=== PATIENT | female | born 1990 | race African-American/Black ===

== ENCOUNTER 2021-01-04 21:20 | Emergency (ER) | payer SELFPAY ==
[2021-01-04] MEDS ORDERED: ACETAMINOPHEN 500 MG TAB ONE (22:46)
--- NOTE | 2021-01-04 23:17 | ER ---
Nurse's Notes [facility] Name: Ant Fierro Age: 30 yrs Sex: Female : 1990 Arrival Date: 01/04/2021 Time: 21:51 Bed 9 Private MD: Diagnosis: Contusion of unspecified part of head Presentation: 01/04 21:57 Chief complaint: Patient states: Pt states this morning while at work she was bumped in wg the head with the handle of a shovel. Pt states she was hit on the right temporal area. Pt denies falling to ground, denies LOC, SOB, N/V/D. Pt states she initially felt a little dizzy but that has subsided. Pt continued to work throughout day, went home, showered and decided she wanted to get checked out to make sure she's okay. No raised or reddened area or any sign of trauma. Coronavirus screen: Vaccine status: Patient reports being unvaccinated. At this time, the client does not indicate any symptoms associated with coronavirus-19. Ebola Screen: Patient negative for fever greater than or equal to 101.5 degrees Fahrenheit, and additional compatible Ebola Virus Disease symptoms Patient denies exposure to infectious person. Patient denies travel to an Ebola-affected area in the 21 days before illness onset. Mechanism of Injury: The problem was sustained at work, resulted from accidental injury from handle from shovel. Initial Sepsis Screen: Does the patient meet any 2 criteria? No. Patient's initial sepsis screen is negative. Does the patient have a suspected source of infection? No. Patient's initial sepsis screen is negative. Risk Assessment: Do you want to hurt yourself or someone else? Patient reports no desire to harm self or others. 21:57 Method Of Arrival: Ambulatory 21:57 Acuity: NANDO 4 Triage Assessment: 22:02 General: Appears in no apparent distress. comfortable, slender, well groomed, Behavior wg is calm, cooperative, appropriate for age. Pain: Complains of pain in right temporal area. EENT: No deficits noted. Neuro: No deficits noted. 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 Gait is steady, Speech is normal, Facial symmetry appears normal, Pupils are PERRLA, Intact states pain when palpated, otherwise feels fine. . Reports Denies blurred vision dizziness, headache photophobia. Cardiovascular: No deficits noted. Respiratory: No deficits noted. GI: No deficits noted. : No deficits noted. Derm: No deficits noted. Musculoskeletal: No deficits noted. 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 - Social history:: Smoking status: Patient denies any tobacco usage or history of. Patient uses alcohol, but reports only rare drinking. Patient/guardian denies using street drugs, IV drugs. Assessment: 23:01 General: Appears in no apparent distress. comfortable. Pain: Complains of pain in face ch4 Pain at worst was 5 out of 10 on a pain scale. Quality of pain is described as tender. Neuro: No deficits noted. Cardiovascular: No deficits noted. Respiratory: No deficits noted. GI: No deficits noted. : No deficits noted. EENT: No deficits noted. Derm: No deficits noted. Musculoskeletal: No deficits noted. 23:26 Reassessment: Patient is alert, oriented x 3, equal unlabored respirations, skin ch4 warm/dry/pink. Patient states feeling better. Vital Signs: 21:57 BP 109 / 71; Pulse 60; Resp 18; Temp 98.7; Pulse Ox 100% on R/A; Weight 63.5 kg; Height 5 ft. 7 in. (170.18 cm); Pain 4/10; 23:26 BP 112 / 72; Pulse 65; Resp 17; Temp 98.6; Pulse Ox 100% ; ch4 21:57 Body Mass Index 21.93 (63.50 kg, 170.18 cm) [place] Coma Score: 21:57 Eye Response: spontaneous(4). Verbal Response: oriented(5). Motor Response: obeys wg commands(6). Total: 15. 22:30 Eye Response: spontaneous(4). Verbal Response: oriented(5). Motor Response: obeys commands(6). Total: 15. 23:27 Eye Response: spontaneous(4). Verbal Response: oriented(5). Motor Response: obeys ch4 commands(6). Total: 15. ED Course: 21:51 Patient arrived in ED. wm 22:02 Triage completed. wg 22:02 Arm band placed on right wrist. wg 22:11 Jeff Gregory PA is PHCP. cp 22:11 Jeff Roca MD is Attending Physician. cp 22:13 Aaliyah Robles, RN is Primary Nurse. ch4 22:42 CT Head Brain wo Cont: hit by handle of shovel In Process Unspecified. EDMS Administered Medications: 22:22 Drug: Tylenol 1000 mg Route: PO; ch4 Outcome: 23:16 Discharge ordered by MD. cp 23:27 Patient left the ED. ch4 Signatures: Dispatcher [employer] EDMS Jeff Gregory PA PA cp Marsh, Wendy Aaliyah Robles, NEVILLE RN [facility] Pee Nur RN wg Corrections: (The following items were deleted from the chart) 22:06 21:57 Chief complaint: Patient states: Pt states this morning while at work she was wg bumped in the head with the handle of a shovel. Pt states she was hit on the right temporal area. Pt denies falling to ground, denies LOC, SOB, N/V/D. Pt states she initially felt a little dizzy but that has subsided. Pt continued to work throughout day, went home, showered and decided she wanted to get checked out to make sure she's okay. wg
--- NOTE | 2021-01-04 23:17 | EDPHYS ---
Physician Documentation [facility] Name: Ant Fierro Age: 30 yrs Sex: Female : 1990 Arrival Date: 01/04/2021 Time: 21:51 Bed 9 Private MD: BEA Physician Jeff Roca HPI: 01/04 22:30 This 30 yrs old Black Female presents to ER via Ambulatory with complaints of Closed cp Head Injury-Adult. 22:30 The patient or guardian reports injury, pain. The complaints affect the right protestant. cp Context of injury: The problem was sustained at work, resulted from a direct blow, handle of shovel. 22:30 Onset: The symptoms/episode began/occurred this morning. Associated signs and symptoms: cp Loss of consciousness: This patient did not experience any loss of consciousness. Pertinent positives: headache, Pertinent negatives: neck pain, seizure, vomiting. 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 - Social history:: Smoking status: Patient denies any tobacco usage or history of. Patient uses alcohol, but reports only rare drinking. Patient/guardian denies using street drugs, IV drugs. ROS: 22:35 Neuro: Positive for headache, Negative for dizziness, loss of consciousness, weakness. cp 22:35 Eyes: Negative for injury, pain, redness, and discharge. cp 22:35 Constitutional: Negative for body aches, chills, fever. 22:35 ENT: Negative for ear pain, sore throat, difficulty swallowing, difficulty handling secretions. 22:35 Neck: Negative for pain with movement, pain at rest, stiffness. 22:35 Abdomen/GI: Negative for abdominal pain, nausea, vomiting, and diarrhea. 22:35 All other systems are negative. Exam: 22:40 Constitutional: The patient appears in no acute distress, alert, awake, non-toxic, well cp developed, well nourished. 22:40 Head/face: Noted is swelling, that is mild, of the right protestant, tenderness, that is cp mild, of the right protestant, Sinus tenderness, is not appreciated. 22:40 Eyes: Periorbital structures: appear normal, Pupils: equal, round, and reactive to light and accomodation, Extraocular movements: intact throughout, Conjunctiva: normal, no exudate, no injection, Sclera: no appreciated abnormality, Lids and lashes: appear normal, bilaterally. 22:40 ENT: External ear(s): are unremarkable, Ear canal(s): are normal, clear, TM's: dullness, bilaterally, Nose: is normal, Mouth: Lips: moist, Oral mucosa: moist, Posterior pharynx: Airway: no evidence of obstruction, patent. 22:40 Neck: C-spine: vertebral tenderness, is not appreciated, crepitus, is not appreciated, ROM/movement: is normal, is supple, without pain, no range of motions limitations. 22:40 Chest/axilla: Inspection: normal. 22:40 Cardiovascular: Rate: normal. 22:40 Respiratory: the patient does not display signs of respiratory distress, Respirations: normal, no use of accessory muscles, no retractions, labored breathing, is not present. 22:40 Abdomen/GI: Exam negative for discomfort, distension, guarding, Inspection: abdomen appears normal. 22:40 Back: pain, is absent, ROM is normal. 22:40 Neuro: Orientation: to person, place \T\ time. Mentation: is normal, Cerebellar function: is grossly normal, Motor: moves all fours, strength is normal, Sensation: is normal, Gait: is steady, at a normal pace, without difficulty. Vital Signs: 21:57 BP 109 / 71; Pulse 60; Resp 18; Temp 98.7; Pulse Ox 100% on R/A; Weight 63.5 kg; Height wg 5 ft. 7 in. (170.18 cm); Pain 4/10; 23:26 BP 112 / 72; Pulse 65; Resp 17; Temp 98.6; Pulse Ox 100% ; ch4 21:57 Body Mass Index 21.93 (63.50 kg, 170.18 cm) [place] Coma Score: 21:57 Eye Response: spontaneous(4). Verbal Response: oriented(5). Motor Response: obeys wg commands(6). Total: 15. 22:30 Eye Response: spontaneous(4). Verbal Response: oriented(5). Motor Response: obeys commands(6). Total: 15. 23:27 Eye Response: spontaneous(4). Verbal Response: oriented(5). Motor Response: obeys ch4 commands(6). Total: 15. MDM: 22:11 Patient medically screened. [facility] 22:30 Differential diagnosis: Contusion of Hematoma on Laceration of Intracranial bleed- cp Concussion cerebral contusion. 23:15 Data reviewed: vital signs, nurses notes, radiologic studies, CT scan. cp 23:15 Counseling: I had a detailed discussion with the patient and/or guardian regarding: the cp historical points, exam findings, and any diagnostic results supporting the discharge/admit diagnosis, radiology results. Special discussion: Based on the patient's history, exam and DX evaluation, there is no indication for emergent intervention or inpatient TX. It is understood by the patient/guardian that if the SXs persist or worsen they need to return immediately for re-evaluation. ED course: VSS. CT results negative for acute trauma. Will discharge to home for continued monitoring. Recommend OTC ibuprofen and/or tylenol for pain. 01/04 22:20 Order name: CT Head Brain wo Cont: hit by handle of shovel cp Administered Medications: 22:22 Drug: Tylenol 1000 mg Route: PO; ch4 Disposition: 23:30 Chart complete. cp Disposition Summary: 01/04/21 23:16 Discharge Ordered Location: Home cp Problem: new cp Symptoms: have improved cp Condition: Stable cp Diagnosis - Contusion of unspecified part of head cp Followup: cp - With: Private Physician - When: 2 - 3 days - Reason: Worsening of condition Discharge Instructions: - Discharge Summary Sheet cp - Head Injury, Adult cp Forms: - Medication Reconciliation Form cp - Thank You Letter cp - Antibiotic Education cp - Prescription Opioid Use cp - Work release form ch4 Addendum: 01/06/2021 05:17 Co-signature as Attending Physician, Jeff Roca MD I agree with the assessment and c soni plan of care. Signatures: Dispatcher [employer] Jeff Mayo MD MD cha Page, Corey, PA PA cp Aaliyah Robles, RN RN ch4 Pee Nur RN wg
[2021-01-04 23:47] VITALS: O2SAT 100
[2021-01-04 23:48] VITALS: BP 112/72; TEMP 98.6
--- NOTE | 2021-01-05 11:52 | RAD REPORT ---
EXAM DESCRIPTION: CT - Head Brain Wo Cont - 01/05/2021 6:36 am COMPARISON: None. CLINICAL HISTORY: HEADACHE TECHNIQUE: Axial images were obtained from skull base to vertex without intravenous contrast. Imag es viewed on bone and brain windows. Multiplanar reformats were performed. Automated exposure contr ol was utilized on this examination as a dose lowering technique. FINDINGS: Brain parenchyma, ventricles, dura, meninges, and extra-axial spaces: Ventricles and sulci are normal. No abnormal attenuation of brain parenchyma is present. No acute intracranial hemor rhage or abnormal extra-axial fluid collections are present. Vascular structures: No hyperdense arteries or veins. Calvarium, mastoid air cells, paranasal sinuses and orbits: The calvarium is normal. The mastoid air cells are clear. Visualized paranasal sinuses are unremarkable. Orbital structures are unremarkable. HEAD IMPRESSION: No acute intracranial abnormality. Electronically signed by: Calixto Padilla MD 01/04/2021 11:12 PM CDT Due to temporary technical issues with the PACS/Fluency reporting system, reports are being signed by the in house radiologist without review as a courtesy to ensure prompt reporting. The interpreting r adiologist is fully responsible for the content of the report.
== END 2021-01-04 23:27 | disposition home or self-care (01) ==
LOC: ER 21:20
DX: S00.83XA Contusion of other part of head, initial encounter (principal); W22.8XXA Striking against or struck by other objects, initial encounter; Y92.89 Other specified places as the place of occurrence of the external cause; Y99.8 Other external cause status
CPT/HCPCS: 70450; 99283

== ENCOUNTER 2023-03-22 17:39 | Inpatient (IN) | payer MEDICAID, SELFPAY ==
--- OUTSIDE RECORDS SUMMARY | 2023-03-22 17:43 | XMS REPORT | Continuity of Care Document ---
:1990 Author Organization [facility] t Address [address] [place] [address] Care Team Providers Name Role Phone Roxane Naidu Primary Care Physician [phone] ROXANE BERNARD Attending Clinician Unavailable Roxane Naidu Attending Clinician [phone] Doctor Unassigned, Jeannette Attending Clinician Unavailable Only, Ang Db Test Attending Clinician Unavailable Graciela Chilel Attending Clinician GRACIELA MAKI Attending Clinician Unavailable Kerri Small Attending Clinician KERRI TRAN Attending Clinician Unavailable Payers Payer Name Policy Type Policy Number Effective Date Expiration Date Kush sebastian [employer] [id number] 2017 00:00:00 Problems Condition Condition Condition Status Onset Resolution Last Treating Co mments Source Name Details Category Date Date Treatment Clinician Date Well woman Well woman Disease Active U nivers exam exam 3-07 ity of 00:00: [place] 00 Medical Branch Vaginal Vaginal Disease Active Univers discharge discharge 3-04 ity of 00:00: [place] 00 Medical Branch Other Other Disease Active Univers general general 3-04 [place] and advice 00 Me dical for for Branch contracept contracept estelita estelita management management Screening Screening Disease Active Uni vers examinatio examinatio 7-15 it y of n for n for 00:00: [place] venereal venereal 00 Medica l disease disease Branch Prophylact Prophylact Disease Active U nivers ic ic 7-15 [place] BV BV Disease Active 2017-04 Univers (bacterial (bacterial 2-05 it y of vaginosis[place] vaginosis[place] Screening Screening Disease Active Uni vers for for 906 ity of venereal venereal 00:00: [place] disease disease 00 Medical Branch Vaginal Vaginal Disease Active Univers irritation irritation 12-26 it y of 00:00: [place] 00 Medical Branch R/O R/O Disease Active 2015-04 Univers Vaginal Vaginal 0-19 ity of yeast yeast 00:00: [place] infection infection 00 [facility] Branch Hemorrhage Hemorrhage Disease Active Overview : Univers of of 8 Formattin ity of gastrointe gastrointe 00:00: g of this [place] stinal stinal 00 note Medical tract tract might be Branch different from the original. 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 Anemia Anemia Disease Active Overview: Univer s 12-11 Blood ity of 00:00: loss [address] Branch Allergies, Adverse Reactions, Alerts Allergy Allergy Status Severity Reaction(s) Onset Inactive Treating Comm ents Source Name Type Date Date Clinician NO KNOWN Drug Active Univers ALLERGIE Class ity of S [facility] Social History Social Habit Start Date Stop Date Quantity Comments Source Sexual orientation Univer sity of [facility] Exposure to 2022-06-16 2022-06-26 Not sure [facility] SARS-CoV-2 (event) 00:00:00 07:57:00 [facility] History of Social 2022-06-26 2022-06-26 Univers ity of function 00:00:00 00:00:00 [facility] Alcohol intake 2020-06-23 2020-06-23 Current drinker Unive rsity of 00:00:00 00:00:[address] [facility] (finding) [place] Alcohol Comment 2020-03-22 2020-03-22 social Universit y of 00:00:00 00:00:00 [facility] Tobacco use and 2012-12-10 2012-12-10 Smokeless Universit y of exposure 00:00:00 00:00:00 tobacco non-user [facility] Sex Ass[birth year] Universit y of 00:00:00 00:00:00 [facility] Smoking Status Start Date Stop Date Source Never smoked tobacco [facility] Medications Ordered Filled Start Stop Current Ordering Indication Dosage Frequency Signature Comments Components Source Medication Medication Date Date Medication? Clinician (SIG) Name Name fluconazole 2019-04- No [id number] 150mg Take 1 Univers (DIFLUCAN) 05-23 tablet by ity of 150 mg 00:00[place] 05:59 [place] tablet [place] :[place] now for 1 Medical dose. Branch fluconazole 2019-04- No [id number] 150mg Take 1 Univers (DIFLUCAN) 05-23 tablet by ity of 150 mg 00:00: 05:59 [place] tablet 00 :00 now for 1 Medical dose. Branch fluconazole 2019-04- No [id number] 150mg Take 1 Univers (DIFLUCAN) 05-23 tablet by ity of 150 mg 00:00: 05:59 [place] tablet 00 :00 now for 1 Medical dose. Branch fluconazole 2019-04- No [id number] 150mg Take 1 Univers (DIFLUCAN) 05-23 tablet by ity of 150 mg 00:00: 05:59 [place] tablet 00 :00 now for 1 Medical dose. Branch fluconazole 2019-04- No [id number] 150mg Take 1 Univers (DIFLUCAN) 05-23 tablet by ity of 150 mg 00:00: 05:59 [place] tablet 00 :00 now for 1 Medical dose. Branch metroNIDAZO 2018-04 Yes [id number] 500mg Take 1 Univers LE 500 mg 0-25 tablet by ity o f tablet 00:00: mouth 2 [place] (two) Medical times [place] daily. metroNIDAZO 2018-04 Yes [id number] 500mg Take 1 Univers LE 500 mg 0-25 tablet by ity o f tablet 00:00: mouth 2 [place] 00 (two) Medical times [place] daily. metroNIDAZO 2018-04 Yes [id number] 500mg Take 1 Univers LE 500 mg 0-25 tablet by ity o f tablet 00:00: mouth 2 [place] 00 (two) Medical times Branch daily. metroNIDAZO 2018-04 Yes [id number] 500mg Take 1 Univers LE 500 mg 0-25 tablet by ity o f tablet 00:00: mouth 2 [place] 00 (two) Medical times Branch daily. metroNIDAZO 2018-04 Yes [id number] 500mg Take 1 Univers LE 500 mg 0-25 tablet by ity o f tablet 00:00: mouth 2 [place] 00 (two) Medical times Branch daily. metroNIDAZO 2018-04 2020- No [id number] 500mg Take 1 Univers LE 500 mg 0-25 12-01 tablet by ity of tablet 00:00: 00:00 mouth 2 [place] 00 :00 (two) Medical times Branch daily. metroNIDAZO 2018-04 2020- No [id number] 500mg Take 1 Univers LE 500 mg 0-25 12-01 tablet by ity of tablet 00:00: 00:00 mouth 2 [place] 00 :00 (two) Medical times Branch daily. metroNIDAZO 2018-04 2020- No [id number] 500mg Take 1 Univers LE 500 mg 0-25 12-01 tablet by ity of tablet 00:00: 00:00 mouth 2 [place] 00 :00 (two) Medical times Branch daily. metroNIDAZO 2018-04 2020- No [id number] 500mg Take 1 Univers LE 500 mg 0-25 12-01 tablet by ity of tablet 00:00: 00:00 mouth 2 [place] 00 :00 (two) Medical times Branch daily. metroNIDAZO 2018-04 2020- No [id number] 500mg Take 1 Univers LE 500 mg 0-25 12-01 tablet by ity of tablet 00:00: 00:00 mouth 2 [place] 00 :00 (two) Medical times Branch daily. metroNIDAZO 2017-04 Yes [id number] 1{appli Insert 1 Univers LE 2-20 cator} Applicator ity of (METROGEL 00:00: into [place] VAGINAL) 00 vagina at Medica l 0.75 % bedtime. Branch vaginal gel metroNIDAZO 2017-04 Yes [id number] 1{appli Insert 1 Univers LE 2-20 cator} Applicator ity of (METROGEL 00:00: into [place] VAGINAL) 00 vagina at Medica l 0.75 % bedtime. Branch vaginal gel metroNIDAZO 2017-04 Yes [id number] 1{appli Insert 1 Univers LE 2-20 cator} Applicator ity of (METROGEL 00:00: into [place] VAGINAL) 00 vagina at Medica l 0.75 % bedtime. Branch vaginal gel metroNIDAZO 2017-04 Yes [id number] 1{appli Insert 1 Univers LE 2-20 cator} Applicator ity of (METROGEL 00:00: into [place] VAGINAL) 00 vagina at Medica l 0.75 % bedtime. Branch vaginal gel metroNIDAZO 2017-04 Yes [id number] 1{appli Insert 1 Univers LE 2-20 cator} Applicator ity of (METROGEL 00:00: into [place] VAGINAL) 00 vagina at Medica l 0.75 % bedtime. Branch vaginal gel metroNIDAZO 2017-04- No [id number] 1{appli Insert 1 Univers LE 203-22 cator} Applicator ity of (METROGEL 00:00: 00:00 into [place] VAGINAL) 00 :00 vagina at Medica l 0.75 % bedtime. Branch vaginal gel metroNIDAZO 2017-04- No [id number] 1{appli Insert 1 Univers LE 203-22 cator} Applicator ity of (METROGEL 00:00: 00:00 into [place] VAGINAL) 00 :00 vagina at Medica l 0.75 % bedtime. Branch vaginal gel metroNIDAZO 2017-04- No [id number] 1{appli Insert 1 Univers LE 203-22 cator} Applicator ity of (METROGEL 00:00: 00:00 into [place] VAGINAL) 00 :00 vagina at Medica l 0.75 % bedtime. Branch vaginal gel metroNIDAZO 2017-04- No [id number] 1{appli Insert 1 Univers LE 203-22 cator} Applicator ity of (METROGEL 00:00: 00:00 into [place] VAGINAL) 00 :00 vagina at Medica l 0.75 % bedtime. Branch vaginal gel metroNIDAZO 2017-04- No [id number] 1{appli Insert 1 Univers LE 203-22 cator} Applicator ity of (METROGEL 00:00: 00:00 into [place] VAGINAL) 00 :00 vagina at Medica l 0.75 % bedtime. Branch vaginal gel No known No Univers medications ity of [facility] No known No [facility] No known No [facility] [place] [facility] Immunizations Ordered Filled Date Status Comments Source Immunization Name Immunization Name TD 2010-04-22 Completed University of 00:00:00 [facility] TDAP 2010-04-22 Completed University of 00:00:00 [facility] TDAP 2010-04-22 Completed University of 00:00:00 [facility] TDAP 2010-04-22 Completed University of 00:00:00 [facility] TDAP 2010-04-22 Completed University of 00:00:00 [facility] Branch TDAP 2010-04-22 Completed University of 00:00:00 [facility] Branch Tdap 2010-04-22 Completed University of 00:00:00 [facility] Tdap 2010-04-22 Completed University of 00:00:00 [facility] Tdap 2010-04-22 Completed University of 00:00:00 [facility] Tdap 2010-04-22 Completed University of 00:00:00 [facility] TDAP 2010-04-22 Completed University of 00:00:00 [facility] TDAP 2010-04-22 Completed University of 00:00:00 [facility] TDAP 2010-04-22 Completed University of 00:00:00 [facility] TDAP 2010-04-22 Completed University of 00:00:00 [facility] TDAP 2010-04-22 Completed University of 00:00:00 [facility] TDAP 2010-04-22 Completed University of 00:00:00 [facility] TDAP Unknown Completed [facility] Vital Signs Vital Name Observation Time Observation Value Comments Source Systolic blood 2022-06-26 13:56:00 105 mm[Hg] Univer sity of pressure [facility] Diastolic blood 2022-06-26 13:56:00 61 mm[Hg] Unive rsity of pressure [facility] Heart rate 2022-06-26 13:56:00 63 /min [facility] Body temperature 2022-06-26 13:56:00 36.78 Lashae [facility] 2022-06-26 13:56:00 20 /min [facility] Body height 2022-06-26 13:56:00 165.1 cm [facility] Body weight 2022-06-26 13:56:00 67.903 kg Universi ty of [facility] BMI 2022-06-26 13:56:00 24.91 kg/m2 Universi ty of [facility] Systolic blood 2020-06-23 21:43:00 113 mm[Hg] Univer sity of pressure [facility] Diastolic blood 2020-06-23 21:43:00 75 mm[Hg] Unive rsity of pressure [facility] Heart rate 2020-06-23 21:43:00 69 /min Universi ty of [facility] Body temperature 2020-06-23 21:43:00 36.72 Lashae Univ ersity of [facility] Respiratory rate 2020-06-23 21:43:00 16 /min Univ ersity of [facility] Body height 2020-06-23 21:43:00 165.1 cm Universi ty of [facility] Body weight 2020-06-23 21:43:00 65.772 kg Universi ty of [facility] BMI 2020-06-23 21:43:00 24.13 kg/m2 Universi ty of [facility] Systolic blood 2020-03-22 16:01:00 108 mm[Hg] Univer sity of pressure [facility] Branch Diastolic blood 2020-03-22 16:01:00 82 mm[Hg] Unive rsity of pressure [facility] Heart rate 2020-03-22 16:01:00 69 /min Universi ty of [facility] Body temperature 2020-03-22 16:01:00 36.72 Lashae Univ ersity of [facility] Respiratory rate 2020-03-22 16:01:00 16 /min Univ ersity of [facility] Body height 2020-03-22 16:01:00 165.1 cm Universi ty of [facility] Body weight 2020-03-22 16:01:00 64.949 kg Universi ty of [facility] BMI 2020-03-22 16:01:00 23.83 kg/m2 Universi ty of [facility] Procedures Procedure Date / Time Performing Clinician Source Performed GC & CHLAMYDIA 2022-06-26 14:52:00 Roxane Bernard [facility] HIV 1/2 AG-AB WITH 2022-06-26 14:52:00 Roxane Bernard [facility] TRICHOMONAS AMPLIFIED 2022-06-26 14:52:00 Roxane Bernard [facility] ASSAY [facility] SYPHILIS IGG/IGM 2022-06-26 14:52:00 [facility] 2022-06-26 13:50:20 Doctor Unassigned, No [facility] ASSIGNMENT OF BENEFITS 2020-03-22 15:48:11 Doctor Unassigned, No [facility] Encounters Start End Encounter Admission Attending Care Care Encounter Source Date/Time Date/Time Type Type Clinicians Facility Department ID 2022-06-26 2022-06-26 Outpatient R BLAS [facility] [id number] Univers 07:45:00 08:52:31 ROXANE grimes f [facility] 2022-06-26 2022-06-26 Office Blas [facility] [id number] Univers 07:45:00 08:52:31 Visit Roxane Anguiano WAFER FAB TECHNICIAN [id number] ity of [facility] [id number] [place] as MATERNAL [phone] Med ical & CHILD 107 [facility] 2022-06-26 2022-06-26 Orders Doctor PRAVEEN [id number] Univers 00:00:00 00:00:00 Only Unassigned, MENDOZA [id number] ity of [place] [facility] [id number] Xiang as [phone] [facility] 009 Branch 2020-12-23 2020-12-23 Patient Doctor [facility] [id number] Univers 00:00:00 00:00:00 Secure Msg Unassigned, MULTISPEC [id number] ity of [place] [id number] [place] [phone] [facility] AND [place] 189 Branch [facility]ES [facility] 2020-12-21 2020-12-21 Laboratory Only, Ang Db Test [facility] [id number] Univers 12:10:16 12:20:16 [facility] [id number] ity [facility] [id number] Xiang as Ang?Blea [phone] Ar natalya bird [address] [place] [address] Medical Office Building 2020-12-21 2020-12-21 Outpatient R GLYNN [facility] [id number] Univers 11:30:00 11:30:00 GRACIELA pretty o [facility] 2020-06-23 2020-06-[address] [facility] [id number] Univers 15:34:30 16:16:23 Visit Roxane Anguiano WAFER FAB TECHNICIAN [id number] ity of [place] [id number] Xiang as MATERNAL [phone] [facility] ica & [address] 2020-06-23 2020-06-23 Outpatient R [facility] [id number] Univers 15:45:00 15:45:00 ROXANE grimes [facility] 2020-03-22 2020-03-22 Office [facility] [id number] Univers 09:49:26 10:43:22 Visit Kerri Sparrow WAFER FAB TECHNICIAN [id number] it y of [facility] [id number] [place]iang as MATERNAL [id number] [address] 2020-03-22 2020-03-22 [facility] [id number] Univers 09:45:00 09:45:00 KERRI pretty [facility] 2020-03-22 2020-03-22 Orders Doctor [place] [id number] Univers 00:00:00 00:00:00 Only Unassigned, MENDOZA [id number] ity of [place] [facility] 4.2.7.2.686 Xiang as [phone] [address] 2019-09-10 2019-09-10 Telephone [facility] [id number] Univers 00:00:00 00:00:00 Roxane Anguiano WAFER FAB TECHNICIAN [id number] ity of [facility] [id number] Xiang as MATERNAL [phone] [facility] ical & CHILD 107 [facility] 2019-09-08 2019-09-08 Telephone Rameshnatali [facility] [id number] Univers 00:00:00 00:00:00 Roxane C WAFER FAB TECHNICIAN [id number] ity of REGIONAL [id number] Xiang as MATERNAL [id number] [facility] [address] [place] [address] 2019-05-06 2019-05-[address] [facility], [facility] [id number] Univers 00:00:00 00:00:00 Secure Msg Roxane C WAFER FAB TECHNICIAN [id number] ity of REGIONAL [id number] Xiang as MATERNAL [id number] [facility] [address] [place] [address] 2019-05-06 2019-05-06 Refill Doctor [facility] [id number] 00:00:00 00:00:00 Unassigned, WAFER FAB TECHNICIAN [id number] ity of [place] REGIONAL 4.2.7.2.686 Xiang as MATERNAL [phone] [facility] & CHILD [address] [place] [address] Results This patient has no known results.
[2023-03-22] MEDS ORDERED: ASPIRIN 81 MG CHEWABLE TABLET ONE (18:16)
--- NOTE | 2023-03-22 18:22 | RAD REPORT ---
EXAM DESCRIPTION: Konrad Single View03/22/2023 6:06 pm CLINICAL HISTORY: CHEST PAIN COMPARISON: No comparisons TECHNIQUE: Portable AP view of the chest. FINDINGS: The lungs are clear. No pneumothorax or effusion. The cardiomediastinal contours are unre markable. IMPRESSION: No acute cardiopulmonary process.
[2023-03-22 18:28] LABS: Absolute Lymphocytes (CBC) 2.6 K/uL (0.7-4.9); Hematocrit 36.4 % (36.0-45.0); Lymphocytes % 45.6 % (15.3-44.8); MCV 92.6 fL (80-100); MPV 8.9 fL (7.6-11.3); Platelets 229 thou/uL (152-406); RBC Red Blood Cell Count 3.93 M/uL (3.86-4.86)
[2023-03-22 18:52] LABS: Specific Gravity 1.027 (1.005-1.030)
[2023-03-22 19:26] LABS: Magnesium 2.3 mg/dL (1.6-2.4); Potassium 3.7 mEq/L (3.5-5.1)
[2023-03-22 19:30] LABS: Troponin High Sensitivity 108.6 pg/mL (<58.9)
--- NOTE | 2023-03-22 19:37 | EDPHYS ---
Physician Documentation [facility] Name: Ant Fierro Age: 32 yrs Sex: Female : 1990 Arrival Date: 03/22/2023 Time: 17:39 Bed 5 Private MD: ED Physician Matty Eduardo HPI: 03/22 17:55 This 32 yrs old Black Female presents to ER via Unassigned with complaints of Chest ms3 Pain. 17:55 32-year-old female with no past medical history presents to the emergency department ms3 for 2 weeks of chest pain. Patient states the pain is a 5/10 without radiation. Patient endorses nausea. Patient denies vomiting, shortness of breath, sweating.. Historical: - Allergies: 17:59 No Known Allergies; hb - Home Meds: 17:59 None [Active]; hb - PMHx: 17:59 Anemia; blood transfusion x 1; hb - PSHx: 17:59 None; hb - Immunization history:: Adult Immunizations up to date. - Social history:: Smoking status: Patient denies any tobacco usage or history of. ROS: 17:55 Constitutional: Negative for fever, and chills. Neck: Negative for injury, pain, and ms3 swelling, 17:55 Respiratory: Negative for shortness of breath, cough, wheezing, and pleuritic chest pain, Abdomen/GI: Negative for abdominal pain, nausea, vomiting, diarrhea, and constipation, MS/Extremity: Negative for injury and deformity, Skin: Negative for injury, rash, and discoloration, Neuro: Negative for headache, weakness, numbness, tingling. 17:55 Cardiovascular: Positive for chest pain, 17:55 All other systems are negative, Exam: 17:55 Constitutional: This is a well developed, well nourished patient who is awake, alert, ms3 and in no acute distress. Head/Face: Normocephalic, atraumatic. Chest/axilla: Normal chest wall appearance and motion. Nontender with no deformity. Cardiovascular: Regular rate and rhythm with a normal S1 and S2. No gallops, murmurs, or rubs. Normal PMI, no JVD. No pulse deficits. Respiratory: Lungs have equal breath sounds bilaterally, clear to auscultation and percussion. No rales, rhonchi or wheezes noted. No increased work of breathing, no retractions or nasal flaring. Abdomen/GI: Soft, non-tender, with normal bowel sounds. No distension or tympany. No guarding or rebound. No evidence of tenderness throughout. Skin: Warm, dry with normal turgor. Normal color with no rashes, no lesions, and no evidence of cellulitis. MS/ Extremity: Pulses equal, no cyanosis. Neurovascular intact. Full, normal range of motion. 18:09 ECG was reviewed by the Attending Physician. ms3 Vital Signs: 17:58 BP 120 / 83; Pulse 71; Resp 16; Temp 98.9(O); Pulse Ox 99% on R/A; Weight 63.5 kg; hb Height 5 ft. 6 in. ; Pain 5/10; 19:51 BP 130 / 74; Pulse 69; Resp 16; Pulse Ox 100% ; Pain 6/10; la4 17:58 Body Mass Index 22.60 (63.50 kg, 167.64 cm) hb 17:58 Pain Scale: Adult hb 19:51 Pain Scale: Adult la4 19:51 c/o throbbing headache and chest pain that continues to be intermittent at a level of 6 la4 Izzy Coma Score: 19:51 Eye Response: spontaneous(4). Motor Response: obeys commands(6). Verbal Response: la4 oriented(5). Total: 15. MDM: 17:54 Patient medically screened. ms3 17:55 Differential diagnosis: abnormal EKG, acute myocardial infarction, chest wall pain. ms3 Scoring Tools PERC Rule for PE Age > /= 50 No (0) HR > /= 100 No (0) O2 Sat Room Air < 95% No (0) Unilateral leg swelling No (0) Hemoptysis No (0) Recent surgery or trauma </= 4 weeks ago, requiring treatment with General Anesthesia No (0) Prior PE or DVT No (0) Hormone use No (0). 19:35 HEART Score: History: Slightly Suspicious (0), ECG: Non specific repolarization ms3 disturbance / LBTB / PM (1), Age: < or = 45 years (0), Risk Factors: No Risk Factors Known (0), Troponin: > 1 and < 3 x normal limit (1), Total Score = 2. Data reviewed: vital signs, nurses notes, lab test result(s), EKG, radiologic studies, and as a result, I will admit patient. Consideration of Admission/Observation Patient was admitted/placed on observation. Management of patient was discussed with the following: Hospitalist: Discussed case with MEJIA Elias on behalf of Dr Shore. Counseling: I had a detailed discussion with the patient and/or guardian regarding the historical points, exam findings, and any diagnostic results supporting the discharge/admit diagnosis, lab results, radiology results, the need for further work-up and treatment in the hospital. ED course: Discussed positive troponin with patient. Discussed necessity for admission. Patient understands and agrees with plan. All questions were answered. 03/22 17:54 Order name: Basic Metabolic Panel; Complete Time: 19:33 ms3 03/22 17:54 Order name: CBC with Diff; Complete Time: 18:40 ms3 03/22 17:54 Order name: Magnesium; Complete Time: 19:33 ms3 03/22 17:54 Order name: Troponin HS; Complete Time: 19:33 ms3 03/22 17:55 Order name: Test, Serum ms3 03/22 18:20 Order name: Test, Urine; Complete Time: 19:09 iw 03/22 20:00 Order name: CK sb4 03/22 20:00 Order name: CRP sb4 03/22 20:42 Order name: Creatine Phosphokinase; Complete Time: 21:08 EDMS 03/22 20:42 Order name: C-Reactive Protein; Complete Time: 21:08 EDMS 03/22 21:56 Order name: Troponin High Sensitivity sb4 03/22 22:34 Order name: Troponin High Sensitivity EDMS 03/22 17:54 Order name: XRAY Chest (1 view); Complete Time: 18:40 ms3 03/22 20:00 Order name: Extrem Venous W Compression Jacques US sb4 03/22 20:00 Order name: CT Chest For PE Angio sb4 03/22 20:51 Order name: US; Complete Time: 21:08 EDMS 03/22 21:31 Order name: CT; Complete Time: 21:32 EDMS 03/22 17:54 Order name: EKG; Complete Time: 17:55 ms3 03/22 21:56 Order name: EKG; Complete Time: 21:56 sb4 03/22 17:54 Order name: Cardiac monitoring; Complete Time: 17:59 ms3 03/22 17:54 Order name: EKG - Nurse/Tech; Complete Time: 17:59 ms3 03/22 17:54 Order name: IV Saline Lock; Complete Time: 18:19 ms3 03/22 17:54 Order name: Labs collected and sent; Complete Time: 18:19 ms3 03/22 17:54 Order name: O2 Per Protocol; Complete Time: 18:13 ms3 03/22 17:54 Order name: O2 Sat Monitoring; Complete Time: 18:13 ms3 EC:09 Rate is 61 beats/min. Rhythm is regular. QRS [place] is Normal. NM interval is normal. QRS ms3 interval is normal. Clinical impression: NSR w/ Non-specific ST/T Changes. Interpreted by me. Reviewed by me. Administered Medications: 18:06 Drug: Aspirin PO Chewable Tablet 324 mg PO once; 81 mg tablets x 4 Route: PO; jl7 23:15 Follow up: Response: No adverse reaction 8 21:49 Drug: NS 0.9% IV 1000 ml IV at 1 bolus Per protocol; 1000 mL bolus Route: IV; Rate: 1 la4 bolus; Infused Over: 30 mins; Site: right antecubital; Delivery: Primary tubing; 23:15 Follow up: IV Status: Completed infusion; IV Intake: 1000ml 21:49 Drug: Ketorolac IVP 15 mg IVP once Route: IVP; Site: right antecubital; la4 23:15 Follow up: Response: No adverse reaction 8 21:49 Drug: metoCLOPramide IVP 10 mg IVP once; over 1 to 2 minutes Route: IVP; Site: right la4 antecubital; 23:15 Follow up: Response: No adverse reaction 8 21:49 Drug: diphenhydrAMINE IVP 12.5 mg IVP once Route: IVP; Site: right antecubital; la4 23:15 Follow up: Response: No adverse reaction km8 Disposition Summary: 03/22/23 19:36 Hospitalization Ordered Notes: Hospitalization Status: Inpatient Admission ms3 Provider: Maxine Shore ms3 Location: Telemetry/MedSurg (Inpatient) ms3 Condition: Stable ms3 Problem: new ms3 Symptoms: are unchanged ms3 Bed/Room Type: Standard ms3 Room Assignment: 406(03/22/23 22:22) kl Diagnosis - NSTEMI ms3 - Chest pain ms3 Discharge Instructions: - Discharge Summary Sheet ms3 - Nonspecific Chest Pain, Adult ms3 Forms: - Medication Reconciliation Form ms3 - SBAR form ms3 - Leadership Thank You Letter ms3 Signatures: Dispatcher [employer] Larissa Cruz RN RN Chery Thompson RN RN Froilan Babcock RN RN [email or web address] Matty Eduardo DO DO ms3 Jazzy Akers, PA-C PA-Shasta Castaneda RN RN la4 Marx, Katie RN km8 Corrections: (The following items were deleted from the chart) 17:55 17:55 The history from the nurse's notes was reviewed and I agree with what is ms3 documented. ms3 17:59 17:59 PMHx: Anemia; Bbood transfusion x 1; hb hb 22:22 19:36 ms3
--- NOTE | 2023-03-22 19:37 | ER ---
Nurse's Notes [facility] Name: Ant Fierro Age: 32 yrs Sex: Female : 1990 Arrival Date: 03/22/2023 Time: 17:39 Bed 5 Private MD: Diagnosis: NSTEMI;Chest pain Presentation: 03/22 17:58 Chief complaint: Intermittent midsternal chest pain and SOB x 1 week. Coronavirus hb screen: At this time, the client does not indicate any symptoms associated with coronavirus-19. Ebola Screen: No symptoms or risks identified at this time. Initial Sepsis Screen: Does the patient meet any 2 criteria? No. Patient's initial sepsis screen is negative. Does the patient have a suspected source of infection? No. Patient's initial sepsis screen is negative. Risk Assessment: Do you want to hurt yourself or someone else? Patient reports no desire to harm self or others. Onset of symptoms was March 15, 2023. 17:58 Method Of Arrival: Ambulatory hb 17:58 Acuity: NANDO 3 hb Historical: - Allergies: 17:59 No Known Allergies; hb - Home Meds: 17:59 None [Active]; hb - PMHx: 17:59 Anemia; blood transfusion x 1; hb - PSHx: 17:59 None; hb - Immunization history:: Adult Immunizations up to date. - Social history:: Smoking status: Patient denies any tobacco usage or history of. Screenin:21 [facility] ED Fall Risk Assessment (Adult) History of falling in the last 3 months, iw including since admission No falls in past 3 months (0 pts). Abuse screen: Denies threats or abuse. Denies injuries from another. Nutritional screening: No deficits noted. Tuberculosis screening: No symptoms or risk factors identified. Assessment: 18:20 General: Appears in no apparent distress. Behavior is calm, cooperative. Pain: iw Complains of pain in anterior aspect of right upper chest and right breast Pain does not radiate. Pain began. Neuro: Level of Consciousness is awake, alert, obeys commands, Oriented to person, place, time, situation, Moves all extremities. Full function. Cardiovascular: Patient's skin is warm and dry. Cardiovascular: Reports chest pain, shortness of breath. Respiratory: Respiratory effort is even, unlabored, Respiratory pattern is regular, symmetrical. GI: Abdomen is flat, non-distended. 21:52 General: Pt c/o increase in chest pain. SCOW DERRICK OPERATOR notified, repeat EKG and troponin ordered la4 and completed. Pt also c/o headache, medications ordered for pain. Vital Signs: 17:58 BP 120 / 83; Pulse 71; Resp 16; Temp 98.9(O); Pulse Ox 99% on R/A; Weight 63.5 kg; hb Height 5 ft. 6 in. ; Pain 5/10; 19:51 BP 130 / 74; Pulse 69; Resp 16; Pulse Ox 100% ; Pain 6/10; la4 17:58 Body Mass Index 22.60 (63.50 kg, 167.64 cm) hb 17:58 Pain Scale: Adult hb 19:51 Pain Scale: Adult la4 19:51 c/o throbbing headache and chest pain that continues to be intermittent at a level of 6 la4 Vitals: 19:51 Cardiac Rhythm Assessment Regular Sinus adam. la4 [place] Coma Score: 19:51 Eye Response: spontaneous(4). Motor Response: obeys commands(6). Verbal Response: la4 oriented(5). Total: 15. ED Course: 17:42 Patient arrived in ED. mr 17:44 Matty Eduardo DO is Attending Physician. ms3 17:59 Triage completed. hb 17:59 Arm band placed on. hb 18:05 EKG done, by ED staff, reviewed by Matty Eduardo DO. jl7 18:08 XRAY Chest (1 view) In Process Unspecified. EDMS 18:19 Melyssa Tomlin RN is Primary Nurse. iw 18:21 Patient has correct armband on for positive identification. Pulse ox on. NIBP on. iw 18:22 Inserted saline lock: 20 gauge in right antecubital area, using aseptic technique. iw Blood collected. Patient maintains SpO2 saturation greater than 95% on room air. 19:35 Maxine Shore MD is Hospitalizing Provider. ms3 19:51 Provided Education on: Plan of care and need for admission. la4 19:51 No provider procedures requiring assistance completed. IV with good blood return, la4 Flushed right antecubital saline lock. 21:49 Primary Nurse role handed off by Melyssa Tomlin RN la4 21:49 Lazcano, La'Helen, RN is Primary Nurse. la4 21:49 CRP Sent. la4 21:49 CK Sent. la4 21:49 CT Chest For PE Angio Sent. la4 21:55 Extrem Venous W Compression Jacques US Sent. la4 21:57 Troponin High Sensitivity Sent. la4 22:47 Patient admitted, IV remains in place. la4 Administered Medications: 18:06 Drug: Aspirin PO Chewable Tablet 324 mg PO once; 81 mg tablets x 4 Route: PO; jl7 23:15 Follow up: Response: No adverse reaction km8 21:49 Drug: NS 0.9% IV 1000 ml IV at 1 bolus Per protocol; 1000 mL bolus Route: IV; Rate: 1 la4 bolus; Infused Over: 30 mins; Site: right antecubital; Delivery: Primary tubing; 23:15 Follow up: IV Status: Completed infusion; IV Intake: 1000ml km8 21:49 Drug: Ketorolac IVP 15 mg IVP once Route: IVP; Site: right antecubital; la4 23:15 Follow up: Response: No adverse reaction km8 21:49 Drug: metoCLOPramide IVP 10 mg IVP once; over 1 to 2 minutes Route: IVP; Site: right la4 antecubital; 23:15 Follow up: Response: No adverse reaction km8 21:49 Drug: diphenhydrAMINE IVP 12.5 mg IVP once Route: IVP; Site: right antecubital; la4 23:15 Follow up: Response: No adverse reaction km8 Medication: 19:51 VIS not applicable for this client. la4 Intake: 23:15 IV: 1000ml; Total: 1000ml. km8 Outcome: 19:36 Decision to Hospitalize by Provider. ms3 22:46 Admitted to Tele accompanied by tech, via stretcher, with oxygen, on monitor, with la4 chart, Report called to Fausto LOZADA 22:46 Condition: good 22:46 Condition: stable 22:46 Instructed on the need for admit, Demonstrated understanding of instructions, 23:22 Patient left the ED. km8 Signatures: Dispatcher [employer] EDTX Delia Deleon, Reg Reg mr Melyssa Tomlin RN RN Chery Healy RN RN Froilan Jorgensen RN RN jl7 Matty Eduardo DO DO ms3 Leta Urrutia RN RN km8 Shasta Lazcano RN RN la4 Corrections: (The following items were deleted from the chart) 17:55 17:55 The history from the nurse's notes was reviewed and I agree with what is ms3 documented. ms3 17:59 17:59 PMHx: Anemia; Bbood transfusion x 1; hb hb 19:53 19:51 IV with good blood return, Flushed right antecubital kaleb hastings4
--- NOTE | 2023-03-22 19:49 | P.HP ---
Certification for Inpatient Patient admitted to: Inpatient With expected LOS: <2 Midnights Patient will require the following post-hospital care: None Practitioner: I am a practitioner with admitting privileges, knowledge of patient current condition, hospital course, and medical plan of care. Services: Services provided to patient in accordance with Admission requirements found in Title 42 Section 412.3 of the Code of Federal Regulations <Jazzy Akers - Last Filed: 03/22/23 21:19> Patient History Date of Service: 03/22/23 Reason for admission: chest pain, elevated troponin History of Present Illness: Ms. Fierro is a 32 year old healthy female who presented to the emergency department with complaints of chest pain. She states that she had a cold about 3 weeks ago and has had gradually worsening, non-radiating substernal chest for the past 2 weeks. She denies any nausea, vomiting, shortness of breath, diaphoresis. States the pain is better when laying supine and worse leaning forward. Denies any persistent cough. Denies any recent surgery, travel, or prolonged immobilization. Labs were unremarkable except for a troponin of 108. EKG did not show any abnormalities. She was given aspirin in the emergency department. Will admit for further management of chest pain/elevated troponin. Home medications list reviewed: Yes (NA) - Past Medical/Surgical History Diabetic: No -: Anemia Past Surgical History: Patient denies surgical history Psychosocial/ Personal History: lives at home with her son. - Family History Mother -: Heart disease - Social History Smoking Status: Never smoker Alcohol use: No CD- Drugs: No Caffeine use: Yes Place of Residence: Home <Jazzy Akers - Last Filed: 03/22/23 21:19> Date of Service: 03/24/23 <Maxine Shore - Last Filed: 03/24/23 13:31> Allergies No Known Allergies Allergy (Unverified 08/19/11 09:05) Home Medications: NK [No Home Meds] 03/22/23 Review of Systems 10-point ROS is otherwise unremarkable Cardiovascular: Chest Pain Musculoskeletal: Leg Pain <Jazzy Akers - Last Filed: 03/22/23 21:19> Physical Examination - Vital Signs Temperature: 98.9 F Blood Pressure: 130/74 Pulse: 69 Respirations: 16 Pulse Ox (%): 100 - Physical Exam General: Alert, In no apparent distress HEENT: Atraumatic, EOMI, Sclerae nonicteric Neck: Supple, 2+ carotid pulse no bruit Respiratory: Clear to auscultation bilaterally, Normal air movement Cardiovascular: No edema, Normal pulses, Regular rate/rhythm, Normal S1 S2, No rubs, No murmurs Gastrointestinal: Normal bowel sounds, No tenderness Musculoskeletal: No tenderness Integumentary: No rashes Neurological: Normal speech, Normal affect - Studies Laboratory Data (last 24 hrs) 03/22/23 03/22/23 18:16 18:16 WBC 5.80 Hgb 12.4 Hct 36.4 Plt Count 229 Sodium 136 Potassium 3.7 BUN 10 Creatinine 0.86 Glucose 104 Magnesium 2.3 <Jazzy Akers - Last Filed: 03/22/23 21:19> Assessment and Plan - Problems (Diagnosis) (1) Chest pain Current Visit: Yes Status: Acute Qualifiers: Chest pain type: unspecified Qualified Code(s): R07.9 - Chest pain, unspecified (2) Elevated troponin Current Visit: Yes Status: Acute - Plan Patient is admitted for further management of chest pain and elevated troponin. Consult cardiology, trend troponin, monitor on telemetry. Chest pain is atypical, low suspicion for ACS. Differential includes pericarditis, PE, myocarditis, cardiomyopathy. Echo ordered to further evaluate. Patient denies any drug, alcohol, or tobacco abuse. Chest CTA pending. DVT negative. Discharge Plan: Home Plan to discharge in: 24 Hours - Advance Directives Does patient have a Living Will: No Does patient have a Durable POA for Healthcare: No - Code Status/Comfort Care Code Status Assessed: Yes Code Status: Full Code Physician Review: Patient Assessed, Agree with Above Assessment and Plan Critical Care: No Time Spent Managing Pts Care (In Minutes): 50 <Jazzy Akers - Last Filed: 03/22/23 21:19> Date of Service: 03/23/23 I was not notified of patient on arrival. Patient is a 32-year-old with an elevated troponin but normal EKGs. Patient needs cardiology but we do not have services available over the weekend. I did speak with her disc pad grinding machine feeder and he recommended I continue anticoagulation and monitor troponins. I did repeat the EKG as well. At this time patient will be continued with treatment at our hospital with antiplatelet therapy and anticoagulation. Echocardiogram is not able to be performed until Saturday. No further cardiac intervention is able to be obtained until Saturday. Continue with current plan of care at this time. I did speak to the patient regarding this and will keep her here until Saturday pending further treatment. Cardiology is in agreement with plan of care. <Maxine Shore - Last Filed: 03/24/23 13:31>
[2023-03-22 20:39] LABS: Creatine Phosphokinase 127 U/L (26-192)
[2023-03-22 20:42] LABS: C-Reactive Protein < 2.90 mg/L (<3.00)
--- NOTE | 2023-03-22 20:51 | RAD REPORT ---
EXAM DESCRIPTION: US - Extrem Venous W Compress Jacques - 03/22/2023 8:33 pm CLINICAL HISTORY: Pain COMPARISON: None. TECHNIQUE: Real-time sonographic evaluation of the bilateral lower extremity deep venous systems was performed. FINDINGS: Normal compressibility, flow augmentation, phasic flow and spontaneous flow is identified in both the left and right lower extremity deep venous systems. No intraluminal filling defects seen. IMPRESSION: No DVT in either lower extremity.
--- NOTE | 2023-03-22 21:30 | RAD REPORT ---
EXAM DESCRIPTION: CT - Chest For Pe Angio - 03/22/2023 8:44 pm CLINICAL HISTORY: Chest pain;PE COMPARISON: Chest Single View dated 03/22/2023 TECHNIQUE: Thin axial CT images of the chest were obtained following administration of 100 mL Isovue 370 IV contrast. Multiplanar reconstructions, and maximum intensity projection reconstructions were generated and reviewed. Exam utilizes a protocol for optimal evaluation of pulmonary arterial tree. All CT scans are performed using dose optimization technique as appropriate and may include automated exposure control or mA/KV adjustment according to patient size. FINDINGS: Pulmonary arteries are normal. No emboli or other suspicious finding. No acute or signific ant aorta findings. No mass or infiltrate in the lung parenchyma. No pleural thickening or pleural effusion. No pneumotho rax. No abnormal mediastinal or hilar masses or lymphadenopathy seen. No chest wall mass or abnormal axill iary lymphadenopathy. IMPRESSION: No evidence of acute central pulmonary emboli. No acute pulmonary process.
[2023-03-22] MEDS ORDERED: METOCLOPRAMIDE 10 MG/2mL INJ ONE (21:52)
[2023-03-22] MEDS ORDERED: NA CHLORIDE 0.9% 50 ML ONE (21:52)
[2023-03-22] MEDS ORDERED: NA CHLORIDE 0.9% 1,000 ML ONE (21:52)
[2023-03-22] MEDS ORDERED: KETOROLAC 30 MG/ML INJ ONE (21:52)
[2023-03-22] MEDS ORDERED: DIPHENHYDRAMINE 50 MG/ML VIAL ONE (21:52)
[2023-03-22 23:32] VITALS: O2SAT 100
[2023-03-22] MEDS ORDERED: ONDANSETRON 4 MG/2 ML VIAL IV PRN (23:36)
[2023-03-22] MEDS ORDERED: ACETAMINOPHEN 325 MG TABLET PO PRN (23:36)
[2023-03-23 00:44] VITALS: BMI 22.6
[2023-03-23] MEDS: ENOXAPARIN 60 MG/0.6 ML SQ SCH ×3 (01:09→21:07)
[2023-03-23 01:50] LABS: Thyroid Stimulating Hormone 3.83 uIU/mL (0.358-3.740)
[2023-03-23 01:51] LABS: Troponin High Sensitivity 100.7 pg/mL (<58.9)
[2023-03-23] MEDS ORDERED: FAMOTIDINE 20 MG/2 ML VIAL IV ONE (04:51)
[2023-03-24] MEDS ORDERED: PANTOPRAZOLE 40 MG INJ IVP ONE ×2 (04:25→04:35)
[2023-03-24] MEDS ORDERED: SODIUM CHLORIDE 0.9% 10ML INJ IV PRN ×2 (04:25→04:35)
[2023-03-24] MEDS ORDERED: MORPHINE 2 MG/ML SYR IV PRN (04:35)
[2023-03-24] MEDS: ENOXAPARIN 60 MG/0.6 ML SQ SCH ×2 (09:30→21:00)
--- NOTE | 2023-03-24 13:36 | P.PN ---
Date of Service: 03/23/23 Subjective Pt is doing well with no new complaints Physical Examination - Vital Signs reviewed - Physical Exam General: Alert, In no apparent distress Respiratory: Clear to auscultation bilaterally, Normal air movement Cardiovascular: No edema, Normal pulses, Regular rate/rhythm, Normal S1 S2, No rubs, No murmurs Gastrointestinal: Normal bowel sounds, No tenderness Musculoskeletal: No tenderness Neurological: No focal deficits Assessment and Plan - Problems (Diagnosis) (1) NSTEMI Current Visit: Yes Status: Acute Qualifiers: Chest pain type: unspecified Qualified Code(s): R07.9 - Chest pain, unspecified - Plan 1. Continue anticoagulation 2. Continue antiplatelet therapy 3. Continue with statin therapy 4. Strict blood pressure control 5. Spoke with cardiology and plan for cardiac cath on Saturday 6. GI DVT prophylaxis Discharge Plan: Home Plan to discharge in: 24 Hours - Advance Directives Does patient have a Living Will: No Does patient have a Durable POA for Healthcare: No - Code Status/Comfort Care Code Status Assessed: Yes Code Status: Full Code Physician Review: Patient Assessed, Agree with Above Assessment and Plan Critical Care: No Time Spent Managing Pts Care (In Minutes): 40
--- NOTE | 2023-03-24 13:38 | P.PN ---
Date of Service: 03/24/23 Subjective Patient denies any new complaints. Not having any more chest pain. Clinical symptoms are stable. Troponins are elevated. Physical Examination - Vital Signs reviewed - Physical Exam General: Alert, In no apparent distress Respiratory: Clear to auscultation bilaterally, Normal air movement Cardiovascular: No edema, Normal pulses, Regular rate/rhythm, Normal S1 S2, No rubs, No murmurs Gastrointestinal: Normal bowel sounds, No tenderness Musculoskeletal: No tenderness Neurological: No focal deficits Assessment and Plan - Problems (Diagnosis) (1) NSTEMI Current Visit: Yes Status: Acute Qualifiers: Chest pain type: unspecified Qualified Code(s): R07.9 - Chest pain, unspecified - Plan Continue with plan of care as mentioned below: 1. Continue anticoagulation 2. Continue antiplatelet therapy 3. Continue with statin therapy 4. Strict blood pressure control 5. Spoke with cardiology and plan for cardiac cath on Saturday; continue with echocardiogram as well. 6. GI DVT prophylaxis Discharge Plan: Home Plan to discharge in: 24 Hours - Advance Directives Does patient have a Living Will: No Does patient have a Durable POA for Healthcare: No - Code Status/Comfort Care Code Status Assessed: Yes Code Status: Full Code Physician Review: Patient Assessed, Agree with Above Assessment and Plan Critical Care: No Time Spent Managing Pts Care (In Minutes): 20
[2023-03-25] MEDS: ENOXAPARIN 60 MG/0.6 ML SQ SCH (08:33)
[2023-03-25] MEDS ORDERED: ASPIRIN EC 81 MG TAB PO SCH (09:00)
[2023-03-25] MEDS ORDERED: REGADENOSON 0.4 MG/5 ML SYR IV ONE (09:11)
[2023-03-25] MEDS ORDERED: ONDANSETRON 4 MG/2 ML VIAL ONE (09:35)
--- NOTE | 2023-03-25 12:35 | RAD REPORT ---
EXAM DESCRIPTION: NM - Rest Stress Cardiac Imaging - 03/25/2023 10:42 am CLINICAL HISTORY: ELEVATED TROPONIN Chest pain. COMPARISON: No comparisons TECHNIQUE: The patient was administered approximately 10mCi of Tc 99m Sestamibi prior to resting SPE CT imaging of the heart. The patient was then administered approximately 30 mCi of Tc 99m Sestamibi f ollowing exercise or pharmacologic stress. Multiplanar SPECT images were reviewed. FINDINGS: No stress induced ischemic defect is seen to suggest stress induced ischemia. Anterior wal l diminished radiopharmaceutical accumulation on rest and stress is likely artifactual related to willy ast attenuation. No fixed defect is seen to suggest hibernating myocardium or scarred myocardium. The end diastolic volume is 97 ml, the end systolic volume is 41 ml, and the ejection fraction is 57 %. IMPRESSION: No stress induced ischemia.
[2023-03-25 14:24] VITALS: BP 101/60; TEMP 98.2
--- NOTE | 2023-03-25 14:54 | P.PN ---
Subjective Date of Service: 03/25/23 Chief Complaint: chest pain, elevated troponin Pt is resting comfortably in bed. She reports chest pain that started at home. Troponin is 103.5. Cardiology is following. NM stress test is negative for stress induced ischemia. No other complaints. Review of Systems General: Unremarkable Eyes: Unremarkable ENT: Unremarkable Respiratory: Unremarkable Cardiovascular: Unremarkable Gastrointestinal: Unremarkable Genitourinary: Unremarkable Musculoskeletal: Unremarkable Integumentary: Unremarkable Neurological: Unremarkable Physical Examination - Vital Signs Temperature: 98.2 F Blood Pressure: 101/60 Pulse: 70 Respirations: 15 Pulse Ox (%): 99 - Physical Exam General: In no apparent distress, Oriented x3, Cooperative HEENT: Atraumatic, Normocephalic, PERRLA Neck: Supple, 2+ carotid pulse no bruit, No Thyromegaly Respiratory: Clear to auscultation bilaterally, Normal air movement Cardiovascular: No edema, Normal pulses, Normal S1 S2 Capillary refill: <2 Seconds Gastrointestinal: Normal bowel sounds, Soft and benign, Non-distended Musculoskeletal: No clubbing, No swelling, No erythema Integumentary: No rashes, No breakdown Neurological: Normal gait, Normal speech, Sensation intact Assessment And Plan - Plan NSTEMI: Troponin is 103.5. NM stress test is negative for stress induced ischemia. Waiting for Cardiology eval. Continue statin and aspirin. Will follow up Echo. GI ppx: protonix DVT prophylaxis: SCD Discharge Plan: Will dc Home once cleared by cardiology Discharge Plan: Home Plan to discharge in: 24 Hours - Code Status/Comfort Care Code Status Assessed: Yes Code Status: Full Code Physician Review: Patient Assessed, Agree with Above Assessment and Plan
--- NOTE | 2023-03-25 16:02 | P.DS ---
Admission Date: 03/22/23 Discharge Date: 03/25/23 Disposition: ROUTINE DISCHARGE Discharge Condition: GOOD Reason for Admission: chest pain, elevated troponin Procedures: NM stress test is negative for stress induced ischemia Brief History of Present Illness: Ms. Fierro is a 32 year old healthy female who presented to the emergency department with complaints of chest pain. She states that she had a cold about 3 weeks ago and has had gradually worsening, non-radiating substernal chest for the past 2 weeks. She denies any nausea, vomiting, shortness of breath, diaphoresis. States the pain is better when laying supine and worse leaning forward. Denies any persistent cough. Denies any recent surgery, travel, or prolonged immobilization. Labs were unremarkable except for a troponin of 108. EKG did not show any abnormalities. She was given aspirin in the emergency department. Will admit for further management of chest pain/elevated troponin. Hospital Course: Pt is a 32 year old healthy female who presented to the emergency department with complaints of chest pain. THe chest pain started 2 weeks ago and progressively worsened. Pt was admitted for NSTEMI due to elevated troponin. The Pediatric Intensive Physician initially planned to do cardicac cath but later changed it to NM stress test. We continued Subq lovenox. NM stress test showed no evidence of stress induced ischemia. Troponin trended down. Pt was advised to follow up with Dr. Arthur in Clinic. We discharged her with protonix and aspirin. We advised her to avoid stress and anxiety. Pt was in NAD prior to discharge. Vital Signs/Physical Exam: Temp Pulse Resp BP Pulse Ox 98.2 F 70 15 101/60 99 03/25/23 14:54 03/25/23 14:54 03/25/23 14:54 03/25/23 14:54 03/25/23 14:54 Laboratory Data at Discharge: WBC 5.80 thou/uL (4.3-10.9) 03/22/23 18:16 Hgb 12.4 g/dL (12.0-15.0) 03/22/23 18:16 Hct 36.4 % (36.0-45.0) 03/22/23 18:16 Plt Count 229 thou/uL (152-406) 03/22/23 18:16 Sodium 136 mEq/L (136-145) 03/22/23 18:16 Potassium 3.7 mEq/L (3.5-5.1) 03/22/23 18:16 BUN 10 mg/dL (7-18) 03/22/23 18:16 Creatinine 0.86 mg/dL (0.55-1.02) 03/22/23 18:16 Glucose 104 mg/dL (74-106) 03/22/23 18:16 Magnesium 2.3 mg/dL (1.6-2.4) 03/22/23 18:16 Triglycerides 34 mg/dL (<150) 03/23/23 01:07 Cholesterol 167 mg/dL (<200) 03/23/23 01:07 HDL Cholesterol 84 mg/dL (40-60) H 03/23/23 01:07 Cholesterol/HDL Ratio 1.99 03/23/23 01:07 Home Medications: Pantoprazole Sodium [Protonix] 40 mg PO DAILY 30 Days #30 tab 03/25/23 New Medications: Pantoprazole Sodium [Protonix] 40 mg PO DAILY 30 Days #30 tab Physician Discharge Instructions: -DC IV and DC home -Follow-up with PCP in 1 to 2 weeks -Follow-up with Cardiology in 1 to 2 weeks -Please call Dr. Shore at [phone] if any questions regarding hospital stay -Please call nursing station at [phone] if any nursing or medication questions -Return to the emergency room if symptoms worsen Diet: AHA Activity: Fall precautions
[2023-03-25] MEDS ORDERED: ATORVASTATIN 10 MG TAB PO SCH (21:00)
--- NOTE | 2023-03-26 12:41 | TREADPHA ---
DX: ELEVATED TROPONIN Date of Study: 03/25/2023 Ht: 5' 6 " Wt: 140 lb 0 oz Consulting Physician: ELIAZAR MEDICATIONS: TYLENOL, ASPIRIN, LIPITOR, LOVENOX, MORPHINE, ZOFRAN HISTORY: 32 YEAR OLD FEMALE WITH COMPLAINTS OF CHEST PAIN. NO MEDICAL HISTORY. NON SMOKER, NON DRINKER. PHYSICIAL EXAMINATION: RESTING B.P.: 115/74 RESTING H.R.: 64 RESTING EKG: NORMAL SINUS RHYTHM PROTOCOL: PHARMACOLOGIC EXERCISE TIME: 3:30 B.P. AT [place]AK STRESS: 112/67 IMPRESSION: LEXISCAN INJECTED, FOLLOWED BY CARDIOLITE PER PROTOCOL - SEE NUCLEAR MEDICINE REPORT. NO SUPRAVENTRICULAR TACHYCARDIA, VENTRICULAR TACHYCARDIA, PREMATURE ATRIAL COMPLEXES, PREMATURE VENTRICULAR COMPLEXES. PATIENT REPORTS CHEST PAIN/ PRESSURE TWO OUT OF TEN ON PAIN SCALE. NO ELECTROCARDIOGRAM CHANGES WITH LEXISCAN.
--- NOTE | 2023-03-26 13:00 | ECHO ---
HEIGHT: 5 ft 6 in WEIGHT: 140 lb 0 oz DATE OF STUDY: 03/25/[address]: Jazzy Akers 2-DIMENSIONAL: YES M.MODE: YES DOPPLER: YES COLOR FLOW: YES TDS: PORTABLE: YES DEFINITY: BUBBLE STUDY: DIAGNOSIS: NON ST ELEVATION MYOCARDIAL INFARCTION CARDIAC HISTORY: CATHERIZATION: NO SURGERY: NO PROSTHETIC VALVE: NO PACEMAKER: NO MEASUREMENTS (cm) DIASTOLIC (NORMALS) SYSTOLIC (NORMALS) IVSd 0.8 (0.6-1.2) LA Diam 1.9 (1.9-4.0) LVEF 58% LVIDd 4.6 (3.5-5.7) LVIDs 3.2 (2.0-3.5) %FS 31% LVPWd 1.1 (0.6-1.2) Ao Diam 2.2 (2.0-3.7) 2 DIMENSIONAL ASSESSMENT: RIGHT ATRIUM: NORMAL LEFT ATRIUM: NORMAL RIGHT VENTRICLE: NORMAL LEFT VENTRICLE: NORMAL TRICUSPID VALVE: NORMAL MITRAL VALVE: NORMAL PULMONIC VALVE: NORMAL AORTIC VALVE: NORMAL PERICARDIAL EFFUSION: NONE AORTIC ROOT: NORMAL LEFT VENTRICULAR WALL MOTION: NORMAL DOPPLER/COLOR FLOW: NORMAL COMMENTS: 1. NORMAL LEFT VENTRICULAR EJECTION FRACTION 55-60% 2. NORMAL WALL MOTION 3. NORMAL DIASTOLIC FUNCTION TECHNOLOGIST: CHACHA TRAN
--- NOTE | 2023-03-26 13:38 | EKG ---
Test Date: 2023-03-23 Test Time: 18:33:59 Fulfillment Representative: WILFRED MEASUREMENT RESULTS: Intervals: Rate: 66 MS: 162 QRSD: 78 QT: 388 QTc: 406 [place]: P: 59 MS: 162 QRS: 26 T: 101 INTERPRETIVE STATEMENTS: Normal sinus rhythm T wave abnormality, consider anterior ischemia Abnormal ECG Compared to ECG 03/22/2023 21:32:41 T-wave abnormality now present Possible ischemia now present Sinus bradycardia no longer present Sinus arrhythmia no longer present Electronically Signed On 03-26-23 13:29:44 STICK PULLER by Varun Evans
--- NOTE | 2023-03-26 13:42 | EKG ---
Test Date: 2023-03-22 Test Time: 18:00:18 Assistant Store Manager Sales: WILLAM MEASUREMENT RESULTS: Intervals: Rate: 61 [place]: 176 QRSD: 78 QT: 412 QTc: 414 [place]: P: 44 [place]: 176 QRS: 15 T: 22 INTERPRETIVE STATEMENTS: Normal sinus rhythm Nonspecific T wave abnormality Abnormal ECG No previous ECG available for comparison Electronically Signed On 03-26-23 13:31:10 COLOR TELEVISION CONSOLE MONITOR by Varun Evans
--- NOTE | 2023-03-26 13:42 | EKG ---
Test Date: 2023-03-22 Test Time: 21:32:41 Blood Donor Recruiter Supervisor: HOLLIE MEASUREMENT RESULTS: Intervals: Rate: 56 [place]: 168 QRSD: 78 QT: 408 QTc: 393 [place]: P: 49 FL: 168 QRS: 51 T: 44 INTERPRETIVE STATEMENTS: Sinus bradycardia with sinus arrhythmia Otherwise normal ECG Compared to ECG 03/22/2023 18:00:18 Sinus rhythm no longer present T-wave abnormality no longer present Electronically Signed On 03-26-23 13:31:04 BROADCAST TRAFFIC COORDINATOR by Varun Evans
== END 2023-03-25 16:52 | disposition home or self-care (01) | DRG 282 ==
LOC: ER 17:39 → ERHOLD 19:42 → 4TH 23:03
PROVIDERS: ADMIT Hospitalist; ATTEND Hospitalist
DX: I21.4 Non-ST elevation (NSTEMI) myocardial infarction (principal); Z79.899 Other long term (current) drug therapy
CPT/HCPCS: 36415; 71045; 71275; 78452; 80048; 80061; 81025; 82550; 83735; 84439; 84443; 84484; 85025; 86140; 93005; 93017; 93306; 93970; 96361; 96374; 96375; 99285; A9500; C9113; J1200; J1650; J2270; J2405; J2765; J2785; J7030; Q9967